=== PATIENT | female | born 1995 | race Caucasian/White ===

== ENCOUNTER 2016-07-11 19:34 | Emergency (ER) | payer BC ==
[~2016-07-11] VITALS: Ht 172.7 cm; Wt 71.1 kg
[2016-07-11 19:39] VITALS: TEMP 36.8; Ht 172.7 cm; Wt 71.1 kg
[2016-07-11 20:37] VITALS: BP 126/72; PULSE 74; O2SAT 98
--- NOTE | 2016-07-12 03:01 | EMERGENCY ROOM VISIT NOTE ---
ED Visit Note First contact with patient: 19:47 Chief Complaint: Exposure to mumps. History of Present Illness: Ms. Ruiz is a 20-year-old white female who ambulates into the ED requesting testing after a mumps exposure. Patient reports approximately 2-3 weeks ago she drank out of a glass of a friend. Her friend has recently tested positive for mumps. She reports she would like to be active with a local foot raising activity but was told by her endless steamer tender because of her exposure she could not participate unless she had a test that reported negative for mumps. The event is approximately 3 days away. I asked her she was experiencing any symptoms and she reported no. She denies fevers, chills, sweats, throat swelling, sore throat, cough, wheezing, shortness of breath, decreased appetite, nausea, vomiting. She does report her immunization status are up-to-date against mumps. Review of Systems: As noted above in history of present illness. Past Medical History: Patient denies. Current Medications: Patient denies. Allergies to Medications: Patient denies. Social History: Patient is University student; she feels safe in her home environment; she denies tobacco and alcohol use. Physical Examination: Vital Signs: Date Time Temp Pulse Resp B/P Pulse Ox O2 Delivery O2 Flow Rate FiO2 07/11/16 20:37 74 20 126/72 98 07/11/16 19:39 36.8 90 18 99 Room Air GENERAL: 20-year-old female in no distress, nontoxic-appearing, afebrile and hemodynamically stable. NEUROLOGICAL: Awake, alert and oriented to person, place and time. Answering questions appropriately and following commands. SKIN: Warm, dry and pink. No soft tissue eruptions or trauma noted. HEENT: Atraumatic and normocephalic. No facial swelling noted. ED Course: Patient is assessed as noted above. I did inform her that last year had to do testing on another patient and the tests normally were sent out of this institution and return in 7-10 days. Therefore her this would not be enough time to receive a negative test for her upcoming event. I did have a lengthy conversation with the patient. She declined testing. Patient was educated about tonight's findings and instructed on her treatment plan; she verbalizes understanding and agreement with this plan. Clinical Impression: Mumps exposure. Disposition: Patient discharged home in stable condition; prior to departure she was reassessed and remained pain and symptom-free. Plan: Patient was educated on the signs and symptoms of mumps. Patient was encouraged to follow-up at [facility] [address] or return to the ED for any signs or symptoms of mumps.
== END 2016-07-11 20:38 | disposition home or self-care (01) ==
LOC: C.EDB 19:36 → C.EDD 20:38
DX: Z20.828 Contact with and (suspected) exposure to other viral communicable diseases (principal)

== ENCOUNTER 2017-01-16 00:51 | Emergency (ER) | payer BC ==
[2017-01-16 00:57] VITALS: TEMP 35.9
[2017-01-16 01:57] LABS: PREG INTERNAL NEGATIVE QC NEG CLEAR BACKGROUND; PREG INTERNAL POSITIVE QC POS CONTROL LINE
[2017-01-16 02:17] LABS: BLOOD UREA NITROGEN 12 mg/dl (7-18); BUN/CREATININE RATIO 16.2 (10-20); CALCIUM 8.1 mg/dl (8.5-10.1); CARBON DIOXIDE 26 mmol/L (21-32); CHLORIDE 105 mmol/L (98-107); CREATININE 0.74 mg/dl (0.60-1.20); GLUCOSE 95 mg/dl (70-99); POTASSIUM 3.1 mmol/L (3.5-5.1); SODIUM 140 mmol/L (136-145)
--- NOTE | 2017-01-16 06:58 | EMERGENCY ROOM VISIT NOTE ---
ED Visit Note First contact with patient: 01:09 CHIEF COMPLAINT: Altered mental status from Alcohol overdose HISTORY OF PRESENT ILLNESS: This 21 year old female patient presents to the emergency department via ambulance for evaluation of altered mental status, presumably from alcohol intoxication. The patient was found sleeping outside near [facility]. She was smelling of alcohol and vomit. REVIEW OF SYSTEMS: Review of systems was somewhat limited secondary to patient' s presumed alcohol intoxication status. Review of systems was performed to the best of our ability and reperformed as the patient began to sober up. All other systems were reviewed and are negative. ALLERGIES: See EMR MEDICATIONS: See EMR PMH: No chronic medical disease SOCIAL HISTORY: Lives locally and drinks alcohol PHYSICAL EXAM VITALS: Vitals are noted on the nurse's note and reviewed by myself. Vital signs stable. GENERAL: white female, who is in no acute distress and resting comfortably. Patient is visibly altered and smells of alcohol. HEAD: Normocephalic atraumatic. EARS: External ear normal. External auditory canals clear, tympanic membranes pearly jane without erythema or effusion bilaterally. EYES: Pupils equal round and reactive to light and accommodation. Conjunctivae without injection, sclerae without icterus. Extraocular movements intact. NOSE: Patent, turbinates without inflammation or discharge. MOUTH: Mucous membranes moist. Tonsils are not enlarged. Pharynx without erythema, blood, vomitus, or exudate. Uvula midline. Airway patent. NECK: Supple without nuchal rigidity. No lymphadenopathy. Cervical spine is nontender. HEART: Regular rate and rhythm without murmurs gallops or rubs. LUNGS: Clear to auscultation bilaterally without wheezes, rales or rhonchi. No retractions or accessory muscle use. ABDOMEN: Positive normal bowel sounds x 4. Soft, nontender, without masses or organomegaly. No guarding or rebound tenderness. MUSCULOSKELETAL: No muscle atrophy, erythema, or edema noted. Gross motor function intact to all extremities. NEURO: Patient was alert to person but not place or time. They appear with altered mental status. SKIN: The skin was without rashes, erythema, edema, or bruising. No Tenting of the skin. EMERGENCY DEPARTMENT COURSE: Physical exam and history was performed. Nursing notes and EMR were reviewed. The patient appears to be altered on my examination. I suspect this is from an alcohol overdose. Conservative care measures and aspiration precautions were instituted. The patient was placed on apprentice photographer and watched during the patient's stay. The patient was placed in a prone position. Blood work was obtained and was reviewed. The patient's blood alcohol level was 279. This appears to be the primary cause of the altered status. Patient was reevaluated multiple times throughout the course of their emergency department stay. Over time the patient did sober up and was able to talk, walk , and drink fluids without difficulty. The patient was felt stable for discharge home. The patient was given alcohol intoxication handouts. The patient was discharged home in stable condition with a sober ride. Differential diagnosis: Etiologies such as alcohol intoxication, metabolic, infection, hypoglycemia, electrolyte abnormalities, cardiac sources, intracerebral event, toxicologic, neurologic, as well as others were entertained. Current/Historical Medications No Active Prescriptions or Reported Meds Allergies Coded Allergies: No Known Allergies (Unverified , 01/16/17) Vital Signs Date Time Temp Pulse Resp B/P (MAP) Pulse Ox O2 Delivery O2 Flow Rate FiO2 01/16/17 06:07 89 95/44 95 Room Air 01/16/17 05:14 94 01/16/17 04:19 92 124/77 94 Room Air 01/16/17 02:52 86 124/77 100 Room Air 01/16/17 01:18 Room Air 01/16/17 01:18 Room Air 01/16/17 01:04 82 01/16/17 00:57 35.9 86 20 124/77 99 Room Air Laboratory Results 01/16/17 01:19 Test 01/16/17 01:19 Anion Gap 9.0 mmol/L (3-11) Estimated GFR () 134.2 Estimated GFR (Non- 115.8 BUN/Creatinine Ratio 16.2 (10-20) Calcium Level 8.1 mg/dl (8.5-10.1) Human Chorionic Gonadotropin, Qual NEG (NEG) Ethyl Alcohol mg/dL 279.0 mg/dl (0-3) Departure Information Prescriptions No Active Prescriptions or Reported Meds Referrals [facility] (PCP) Patient Instructions [facility]
[2017-01-16 08:00] VITALS: BP 92/47; PULSE 104; O2SAT 97
== END 2017-01-16 08:31 | disposition home or self-care (01) ==
LOC: EDBD 00:51 → C.EDA 00:52
DX: T51.0X1A Toxic effect of ethanol, accidental (unintentional), initial encounter (principal); F10.120 Alcohol abuse with intoxication, uncomplicated; Y90.8 Blood alcohol level of 240 mg/100 ml or more